=== PATIENT | female | born 1960 | race Caucasian/White ===

== ENCOUNTER 2025-05-12 11:02 | Emergency (ER) | payer OTHER, MEDICARE ==
[~2025-05-12] VITALS: Ht 154.9 cm; Wt 86.2 kg
[2025-05-12 11:18] VITALS: TEMP 98
[2025-05-12 13:06] LABS: BASOPHILS % 0.5 % (0.0-1.0); EOSINOPHILS % 1.4 % (0.0-6.0); LYMPHOCYTES % 27.9 % (18.0-39.1); MONOCYTES % 8.5 % (4.4-11.3); NEUTROPHILS % 61.5 % (38.7-80.0); RED CELL DISTRIBUTION WIDTH 13.2 % (11.7-14.4)
[2025-05-12 13:29] LABS: EST GLOMERULAR FILTRATION RATE 80.0 ML/MIN (>=60)
[2025-05-12 13:41] VITALS: PULSE 66; RESP 16
[2025-05-12 14:39] VITALS: BP 123/67; PULSE 73; RESP 18; O2SAT 98
== END 2025-05-12 14:30 | disposition home or self-care (01) ==
LOC: ER 11:22
DX: F41.9 Anxiety disorder, unspecified (principal); I10 Essential (primary) hypertension; E03.9 Hypothyroidism, unspecified; R94.31 Abnormal electrocardiogram [ECG] [EKG]
CPT/HCPCS: 36415; 71045; 80053; 84484; 85025; 93005; 99284